=== PATIENT | female | born 1995 | race Two or more races ===

== ENCOUNTER 2021-04-01 10:15 | Outpatient (REF) | payer OTHER, SELFPAY ==
[2021-04-01 15:15] LABS: CT PCR NOT DETECTED (Not Detect.); NG PCR NOT DETECTED (Not Detect.)
== END 2021-04-01 10:16 | disposition home or self-care (01) ==
LOC: HO.LAB 10:15
PROVIDERS: Visit Provider Advanced Practice Midwife
DX: Z01.419 Encounter for gynecological examination (general) (routine) without abnormal findings (principal); Z20.2 Contact with and (suspected) exposure to infections with a predominantly sexual mode of transmission; Z97.5 Presence of (intrauterine) contraceptive device
CPT/HCPCS: 87491; 87591; 88142

== ENCOUNTER 2021-11-08 09:16 | Outpatient (REF) | payer OTHER, SELFPAY | END 2021-11-08 09:17 | disposition home or self-care (01) | LOC: HO.LAB 09:16 | PROVIDERS: Visit Provider Internal Medicine | DX: Z13.89 Encounter for screening for other disorder (principal) ==

== ENCOUNTER 2022-07-06 09:16 | Outpatient (REF) | payer OTHER, SELFPAY ==
[2022-07-06 18:49] LABS: CT PCR NOT DETECTED (Not Detect.); NG PCR NOT DETECTED (Not Detect.)
== END 2022-07-06 09:17 | disposition home or self-care (01) ==
LOC: HO.LAB 09:16
PROVIDERS: Visit Provider Advanced Practice Midwife
DX: Z11.3 Encounter for screening for infections with a predominantly sexual mode of transmission (principal); Z20.2 Contact with and (suspected) exposure to infections with a predominantly sexual mode of transmission
CPT/HCPCS: 87491; 87591

== ENCOUNTER → 2022-08-10 13:13 | Outpatient (BNVA) | payer OTHER, SELFPAY | PROVIDERS: Visit Provider Advanced Practice Midwife | DX: Z30.433 Encounter for removal and reinsertion of intrauterine contraceptive device (principal); Z32.02 Encounter for pregnancy test, result negative | CPT/HCPCS: 58300; 58301; 81025; J7298 ==

== ENCOUNTER 2025-07-22 15:28 | Outpatient (REF) | payer OTHER, SELFPAY ==
[2025-07-23 03:55] LABS: CT PCR NOT DETECTED (Not Detect.); NG PCR NOT DETECTED (Not Detect.)
== END 2025-07-22 15:29 | disposition home or self-care (01) ==
LOC: HO.LNP 15:28
PROVIDERS: Visit Provider Advanced Practice Midwife
DX: Z01.419 Encounter for gynecological examination (general) (routine) without abnormal findings (principal); Z11.3 Encounter for screening for infections with a predominantly sexual mode of transmission; Z11.8 Encounter for screening for other infectious and parasitic diseases
CPT/HCPCS: 58301; 87491; 87591; 88175

== ENCOUNTER 2025-07-22 15:28 | Outpatient (AMB) | payer OTHER, SELFPAY ==
--- OUTSIDE RECORDS SUMMARY | 2025-06-05 09:15 | XMS_ITS ---
Author Organization [facility] [address] Address [address] [place] [address] Care Team Providers Care Hammer Fitter Name Role Phone JAXON IRWIN Unavailable [phone] Medications Medication SIG (Take, Route, Fr equency, Duration) Notes Start Date End Date Status Wegovy 1.7 MG/0.75ML Inject 1.7mg Subcut aneous once weekly; Duration: 30 days Active Encounters Encounter Location Date Provider Diagnosis [facility] [address] [place] [id number] 06/05/2025 JAXON IRWIN BMI 27.0-27.9,adult Z68.27 ; Overweight (BMI 25.0-29.9) E66.3 ; Dietary counseling and surveillance Z71.3 and Encounter for examination of blood pressure without abnormal findings Z01.30 Assessments Encounter Date Diagnosis (ICD Code) Assessment Notes Treatment Notes Treatment Clinical Notes Section Notes 06/05/2025 BMI 27.0-27.9,adult (ICD-10 - Z68.27) Carolyn is a 29-year-old female with a PMH of May-Thurner syndrome that presents for weight management follow-up. Reviewed [facility] holistic and medical approach to weight loss with emphasis on lifestyle modification. 05/08/2025: Weight: 139.2, BMI: 27.2. (-9lbs). 04/10/2025: Weight: 47.3, BMI: 28.7. (-2lbs) 03/06/2025: Weight: 149, BMI: 29. (-7lbs) 01/30/2025: Weight: 156, BMI: 30.5. 01/01/2025: Weight: 156, BMI: 30.5. 12/02/2024: Weight: 160, BMI: 31. (-6lbs) 10/31/2024: Weight: 169, BMI: 33. (-7lbs) 10/02/2024: Weight: 176, BMI: 34.3. All questions answered to the patient's satisfaction. Patient demonstrates understanding of diagnosis and treatments discussed. Follow-up in 4 weeks, sooner should any questions/concerns arise. Case discussed with collaborating physician Daiana Wall who has reviewed the assessment/plan. Chart, medications, labs, and vital signs reviewed. Dictation completed with the use of Stylesight voice recognition software, prone to medical misidentifications and grammatical errors. All errors are unintentional. Although the practitioner does try to identify and correct errors, some may be present. Please do not hesitate to contact the practitioner for clarification. Total time was 30 minutes spent with >50% on coordination of care and patient education. 06/05/2025 Overweight (BMI 25.0-29.9) (ICD-10 - E66.3) Carolyn is a 29-year-old female with a PMH of May-Thurner syndrome that presents for weight management follow-up. Reviewed [facility] holistic and medical approach to weight loss with emphasis on lifestyle modification. 05/08/2025: Weight: 139.2, BMI: 27.2. (-9lbs). 04/10/2025: Weight: 47.3, BMI: 28.7. (-2lbs) 03/06/2025: Weight: 149, BMI: 29. (-7lbs) 01/30/2025: Weight: 156, BMI: 30.5. 01/01/2025: Weight: 156, BMI: 30.5. 12/02/2024: Weight: 160, BMI: 31. (-6lbs) 10/31/2024: Weight: 169, BMI: 33. (-7lbs) 10/02/2024: Weight: 176, BMI: 34.3. All questions answered to the patient's satisfaction. Patient demonstrates understanding of diagnosis and treatments discussed. Follow-up in 4 weeks, sooner should any questions/concerns arise. Case discussed with collaborating physician Daiana Wall who has reviewed the assessment/plan. Chart, medications, labs, and vital signs reviewed. Dictation completed with the use of Stylesight voice recognition software, prone to medical misidentifications and grammatical errors. All errors are unintentional. Although the practitioner does try to identify and correct errors, some may be present. Please do not hesitate to contact the practitioner for clarification. Total time was 30 minutes spent with >50% on coordination of care and patient education. 06/05/2025 Dietary counseling and surveillance (ICD-10 - Z71.3) Carolyn is a 29-year-old female with a PMH of May-Thurner syndrome that presents for weight management follow-up. Reviewed [facility] holistic and medical approach to weight loss with emphasis on lifestyle modification. 05/08/2025: Weight: 139.2, BMI: 27.2. (-9lbs). 04/10/2025: Weight: 47.3, BMI: 28.7. (-2lbs) 03/06/2025: Weight: 149, BMI: 29. (-7lbs) 01/30/2025: Weight: 156, BMI: 30.5. 01/01/2025: Weight: 156, BMI: 30.5. 12/02/2024: Weight: 160, BMI: 31. (-6lbs) 10/31/2024: Weight: 169, BMI: 33. (-7lbs) 10/02/2024: Weight: 176, BMI: 34.3. All questions answered to the patient's satisfaction. Patient demonstrates understanding of diagnosis and treatments discussed. Follow-up in 4 weeks, sooner should any questions/concerns arise. Case discussed with collaborating physician Daiana Wall who has reviewed the assessment/plan. Chart, medications, labs, and vital signs reviewed. Dictation completed with the use of Stylesight voice recognition software, prone to medical misidentifications and grammatical errors. All errors are unintentional. Although the practitioner does try to identify and correct errors, some may be present. Please do not hesitate to contact the practitioner for clarification. Total time was 30 minutes spent with >50% on coordination of care and patient education. 06/05/2025 Encounter for examination of blood pressure without abnormal findings (ICD-10 - Z01.30) Carolyn is a 29-year-old female with a PMH of May-Thurner syndrome that presents for weight management follow-up. Reviewed [facility] holistic and medical approach to weight loss with emphasis on lifestyle modification. 05/08/2025: Weight: 139.2, BMI: 27.2. (-9lbs). 04/10/2025: Weight: 47.3, BMI: 28.7. (-2lbs) 03/06/2025: Weight: 149, BMI: 29. (-7lbs) 01/30/2025: Weight: 156, BMI: 30.5. 01/01/2025: Weight: 156, BMI: 30.5. 12/02/2024: Weight: 160, BMI: 31. (-6lbs) 10/31/2024: Weight: 169, BMI: 33. (-7lbs) 10/02/2024: Weight: 176, BMI: 34.3. All questions answered to the patient's satisfaction. Patient demonstrates understanding of diagnosis and treatments discussed. Follow-up in 4 weeks, sooner should any questions/concerns arise. Case discussed with collaborating physician Daiana Wall who has reviewed the assessment/plan. Chart, medications, labs, and vital signs reviewed. Dictation completed with the use of Stylesight voice recognition software, prone to medical misidentifications and grammatical errors. All errors are unintentional. Although the practitioner does try to identify and correct errors, some may be present. Please do not hesitate to contact the practitioner for clarification. Total time was 30 minutes spent with >50% on coordination of care and patient education. Plan Of Treatment Medication Medication Name Sig Start Date Stop Date Notes Wegovy 1.7 MG/0.75ML Inject 1.7mg Subcut aneous once weekly; Duration: 30 days Progress Notes * Emi POSADASOB:1994 (29 yo F)Acc No.[id number]:06/05/2025 Patient: Milton EMIR Carolyn Provider: Jordon IRWIN PA-C :1995 A ge:29 Y S ex:Female Date:06/05/2025 Address: [address], [place], [id number] Subjective: * Chief Complaints: * * HPI: C onstitutional: Carolyn is a 29-year-old female with a PMH of May-Thurner syndrome that presents for weight management follow-up. Taking Wegovy 1.7 mg SC weekly with compliance. Reports moderate appetite suppression. Denies nausea, vomiting, or abdominal pain. Having regular bowel movements. Feels energy is good this month. Averaging 2 meals/day. Not consistently eating breakfast. Lunch is a protein with veggie (meal prepped). D inner consists of a protein, veggie, and rice/beans. Averages 1 plain bottles of water/day, then does 1 with electrolytes instead of crystal light. Also walking 20 minutes/day. Adding 15-20 minutes of strength training every other day. * ROS: A ll Other Systems: Review of Systems (ROS) A ll others negative except those mentioned in HPI. * Medical History: * Medications: T aking Wegovy 1.7 MG/0.75ML Solution Auto-injector 0.75 mL Subcutaneous once weekly Objective: * Vitals: * Physical Examination: G eneral: Age appropriate, well-appearing 29-year-old female in no acute distress, speaking in full sentences without respiratory compromise. Well groomed, well developed. Alert, interactive. Skin: Warm, dry and intact. No lesions/rashes/erythema. HEENT: Normocephalic/atraumatic. CV: RRR. Lungs: Clear to auscultation bilaterally. Neuro: CN II-XII grossly intact. Steady gait with non-assisted ambulation observed. Psych: Stable mood and affect. Assessment: * Assessment: 1. O verweight (BMI 25.0-29.9) - E66.3 (Primary) 2 . B MD 27.0-27.9,adult - Z68.27 3 . D ietary counseling and surveillance - Z71.3 4 .?Encounter for examination of blood pressure without abnormal findings - Z01.30 Carolyn is a 29-year-old f emale with a PMH of May-Thurner syndrome that presents for weight management follow-up. Reviewed [facility] holistic and medical approach to weight loss with emphasis on lifestyle modification. 05/08/2025: Weight: 139.2, BMI: 27.2. (-9lbs). 04/10/2025: Weight: 47.3, BMI: 28.7. (-2lbs) 03/06/2025: Weight: 149, BMI: 29. (-7lbs) 01/30/2025: Weight: 156, BMI: 30.5. 01/01/2025: Weight: 156, BMI: 30.5. 12/02/2024: Weight: 160, BMI: 31. (-6lbs) 10/31/2024: Weight: 169, BMI: 33. (-7lbs) 10/02/2024: Weight: 176, BMI: 34.3. All questions answered to the patient's satisfaction. Patient demonstrates understanding of diagnosis and treatments discussed. Follow-up in 4 weeks, sooner should any questions/concerns arise. Case discussed with collaborating physician Daiana Wall who has reviewed the assessment/plan. Chart, medications, labs, and vital signs reviewed. Dictation completed with the use of Stylesight voice recognition software, prone to medical misidentifications and grammatical errors. All errors are unintentional. Although the practitioner does try to identify and correct errors, some may be present. Please do not hesitate to contact the practitioner for clarification. Total time was 30 minutes spent with >50% on coordination of care and patient education. Plan: * Treatment: * Images: Billing Information: * Visit Code: * Procedure Codes: * Electronic signature of SHERON IRWIN PA-C on 07/22/2025 at 05:40 PM EDT Sign off status: Pending * Provider: Jordon IRWIN PA-C Date: 06/05/2025 Generated for Luther roberts/Fallon/Karinaitting on: 0 07/22/2025 05:40 PM EDT History and Physical Notes * HPI (History of Present Illness) Category Sub-Category Detail Notes Category Not es Constitutional Carolyn is a 29-year-old female with a PMH of May-Thurner syndrome that presents for weight management follow-up. Taking Wegovy 1.7 mg SC weekly with compliance. Reports moderate appetite suppression. Denies nausea, vomiting, or abdominal pain. Having regular bowel movements. Feels energy is good this month. Averaging 2 meals/day. Not consistently eating breakfast. Lunch is a protein with veggie (meal prepped). Dinner consists of a protein, veggie, and rice/beans. Averages 1 plain bottles of water/day, then does 1 with electrolytes instead of crystal light. Also walking 20 minutes/day. Adding 15-20 minutes of strength training every other day. Physical Examination Category Sub-Category Detail Notes Section Note s General: Age appropriate, well-appearing 29-year-old female in no acute distress, speaking in full sentences without respiratory compromise. Well groomed, well developed. Alert, interactive. Skin: Warm, dry and intact. No lesions/rashes/erythema. HEENT: Normocephalic/atraumatic. CV: RRR. Lungs: Clear to auscultation bilaterally. Neuro: CN II-XII grossly intact. Steady gait with non-assisted ambulation observed. Psych: Stable mood and affect.
--- NOTE | 2025-07-22 15:52 | MHC.OFFVIS ---
Vital Signs 07/22/25 15:56 Height 5 ft Weight 144 lb BMI 28.1 BP 116/72 Blood Pressure Location Lt brachial Position Sitting Intake Visit Reasons: annual/ ? IUD removal Intake Note: Pt here for press brake operator annual and to remove mirena. Patient is wanting to have a baby Athletic Team Physician Required: No Information Interpreted: non-clinical & clinical Tile Finisher: Tile Finisher Present (mckenzie) Accompanied by: Self / Same As Patient Allergies No Known Allergies Allergy (Verified 07/22/25 15:53) Medication List - Last Reconciled 07/22/25 by Rabia Thakur LPN levonorgestrel (Mirena) intrauterine Is last menstrual period known: Yes (no period with mirena) Post menopausal: No Patient : No Do you need a note to return to daycare/school/sports/work: No HPI Comments Details: Patient is a premenopausal woman presenting for annual examination. Vessel Ordinary Seaman concerns: She wants her IUD removed today due to planning a future . Currently is sexually active. She denies vaginal itching or irritation. STI screening offered; she accepts. She tries to eat healthy and stays active with exercise. Denies family history of breast, ovarian or colon cancer. Last pap smear 2020, negative. PFSH Medical History Hx of migraine headaches History of DVT of lower extremity History of irregular menstrual cycles May-Thurner syndrome Family History Mother Diabetes Social History Alcohol intake: current Alcohol intake frequency: a few times a month Patient Tobacco Use Status: Never used Tobacco Patient : No Current occupational status: employed Current occupation: director of social media marketing Sexual orientation: Straight/Heterosexual Gender identity: Female Female Reproductive History Menstrual Age of Menarche: 9 control method: progestin IUCD Total pregnancies: 2 Full term: 2 Number of Living Children: 2 Date of last pap smear: 04/01/21 (neg) Review of Systems Const All systems reviewed & are unremarkable except as noted in HPI and below Reports as per HPI Eyes Reports no additional complaints ENT Reports no additional complaints Card Reports no additional complaints Resp Reports no additional complaints GI Reports as per HPI and Reports no additional complaints Reports as per HPI Musc Reports no additional complaints Skin/Breast Reports as per HPI Neuro Reports no additional complaints Psych Reports no additional complaints Endo Reports no additional complaints Tonny/Lymph Reports no additional complaints Aller/Immun Reports no additional complaints Physical Exam Vital Signs: Last Vital Signs BP 116/72 07/22/25 15:56 BMI result Body Mass Index 28.1 Const General: cooperative, healthy appearing, no acute distress, well developed and alert Orientation/consciousness: patient oriented x3 HEENT Head: Yes normal to inspection Eyes General: appearance normal, both eyes and all related structures Neck Neck: Yes normal visual inspection Thyroid: Thyroid normal Chest Chest palpation & inspection: normal inspection of the chest and other (no puckering, dimpling, peau de orange, retraction, discharge, masses) Breast/axilla inspection: normal inspection of the breasts Breast/axilla palpation: normal palpation of the breasts Resp Effort & Inspection: normal respiratory effort GI Inspection: Yes normal to inspection Palpation (GI): Soft to palpation Rectal Exam - Female: deferred General: Yes bladder normal to palpation External Female Exam: normal external appearance and normal appearance of the urethra Speculum Exam - Vagina: normal appearance of the vagina, normal palpation and normal vaginal discharge Speculum Exam - Cervix: normal appearance of the cervix, normal palpation and Other cervical findings present (IUD strings noted at the os) Bimanual exam- vagina & uterus: normal bimanual exam, normal palpation, uterine size normal, bladder normal to palpation, normal palpation and non-tender Bimanual Exam- Adnexa, other: no masses Skin General skin exam: no rashes or lesions noted Rashes: no rashes Neuro General: patient oriented x3 Cognition (Neuro): normal cognition Extrem General: Yes normal to inspection Psych Attitude: cooperative Thought process: Normal thought process present Office Procedures IUD Insert/Removal Details Details: The patient presents today for a IUD removal. ?She is planning a future . She was counseled regarding the removal of her IUD. She was consented for the procedure along with anticipatory guidance for the removal and the consents form was signed. She desires to proceed with the IUD removal. IUD Removal Procedure: The patient was placed in the dorsal lithotomy position. A speculum was inserted vaginally and the cervix and strings were visualized at the os. A Ripley forcep was utilized, and the patient was asked to give a deep cough while the strings were grasped and gently tugged at the same time, removing the IUD device intact. Minimal bleeding was observed. All of the equipment was removed. The patient tolerated the procedure well and left the office in good condition. IUD Removal Information: You may have light bleeding for several days, tapering off to a brown or pink color. Mild cramping after removal is common. If not allergic, you may take an over the counter mild analgesic for the discomfort, such as Tylenol or Advil (use dosing and frequency per the manufacturers recommendations). Call the office if you experience: fever (over 100.4), flu like symptoms, abdominal or pelvic pain, foul smelling discharge or heavy bleeding. If not planning for a future , another form of control is recommended. Use of condoms for prevention of STI's is also recommended, if indicated. This note is constructed using voice recognition software. ?While every effort has been made to ensure accuracy, molecular biology director errors may have been included. ? 67872-XIC Removal Procedure code (CPT) selection complete Assessment & Plan Assessment & Plan (1) Encounter for annual routine gynecological examination: Code(s): Z01.419 - Encounter for gynecological examination (general) (routine) without abnormal findings Category: Medical Plan: Discussed: Current recommendations for pap smears per ASCCP guidelines. Breast awareness and periodic breast exams. Maintain a healthy lifestyle including a well balanced diet and routine exercise. Use condoms for monitoring menses for a few months using an suly or calendar method. Initiate vitamins for the benefit of folic acid for prevention of neural tube defects. If positive to report to the office for evaluation in care to be [facility] to [facility]. Patient verbalizes understanding and agrees to the plan of care. She was given opportunity to ask questions and all questions were answered to the best of my ability. RTO in one year for annual press brake operator examination. This note is constructed using voice recognition software. While every effort has been made to ensure accuracy, molecular biology director errors may have been included. (2) Encounter for IUD removal: Code(s): Z30.432 - Encounter for removal of intrauterine contraceptive device Plan IUD removed, see procedure notes. This note is constructed using voice recognition software. While every effort has been made to ensure accuracy, molecular biology director errors may have been included. Orders: Orders CT NG by PCR Vag/Cerv Today Z11.3 - Encounter for screening for infections with a predominantly sexual mode of transmission Pap Smear Today Z01.419 - Encounter for gynecological examination (general) (routine) without abnormal findings Medications: New PNV no.[id number] 400 mcg-35 mg- 25 mg-5 mg ( Gummies) 1 tab PO DAILY 90 tabs 4RF Coding Level of Care Code Procedure Only Diagnoses Encounter for annual routine gynecological examination Z01.419 Encounter for IUD removal Z30.432 CPT Codes Details - CPT: 80682-RKA Removal ([id number]) Comment Add modifier
[2025-07-22 15:56] VITALS: BP 116/72; BMI 28.1
--- OUTSIDE RECORDS SUMMARY | 2025-07-22 17:40 | XMS_ITS | Clinical Summary ---
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 Medical History Medical History Date Comments History of DVT (deep vein thrombosis) DX:History of DVT (deep vein thrombosis) May-Thurner syndrome DX:May-Thur ner syndrome Family History Medical History Relation Name Comments Hypertension Father Other: type 1 diab Father Hypertension Mother Other: type 1 diab Mother Breast cancer Neg Hx Colon cancer Neg Hx Relation Name Status Comments Father Alive Mother Alive Social History Tobacco Use Types Packs/Day Years Used Date Smoking Tobacco: Never Smokeless Tobacco: Never Alcohol Use Standard Drinks/Week Comments Not Currently 0 (1 standard drink = 0.6 oz pur e alcohol) Comments Unknown Sex and Gender Information Value Date Recorded Sex Assigned at Not on file Legal Sex Female 2:24 AM EST Gender Identity Not on file Sexual Orientation Not on file Obstetrics History Last Filed Vital Signs Vital Sign Reading Time Taken Comments Blood Pressure 104/72 01/05/2024 8:57 AM EST Pulse 70 01/05/2024 8:57 AM EST Temperature - - Respiratory Rate - - Oxygen Saturation - - Inhaled Oxygen Concentration - - Weight 78.7 kg (173 lb 6.4 oz) 01/05/2024 8:57 A M EST Height 152.4 cm (5') 03/02/2022 9:03 AM EDT Body Mass Index 33.86 03/02/2022 9:03 AM EDT Plan of Treatment Health Maintenance Due Date Last Done Comments Hepatitis B Vaccines (1 of 3 - 19+ 3-dose series) 2014 Cervical Cancer Screening: P ap Smear 2016 HIV Screening 10/22/2022 Hepatitis C Screening 10/22/2022 Social Influencers of Health Screening 10/22/2022 Depression Screening 11/13/2024 COVID-19 Vaccine (4 - 2024-2 6 season) 2025 12/31/2021, 02/24/2021, 01/27/2021 Influenza Vaccine (#1) 2025 09/29/2021 DTaP,Tdap,and Td Vaccines (2 - Td or Tdap) 04/30/2028 04/30/2018 Cholesterol Screening (Lipid Panel) 01/05/2029 01/05/2024 HIB Vaccines Aged Out No longer eligi ble based on patient's age to complete this topic HPV Vaccines Aged Out No longer eligi ble based on patient's age to complete this topic Hepatitis A Vaccines Aged Out No long er eligible based on patient's age to complete this topic IPV Vaccines Aged Out No longer eligi ble based on patient's age to complete this topic MMR Vaccines Aged Out No longer eligi ble based on patient's age to complete this topic Meningococcal ACWY Vaccine Aged Out N o longer eligible based on patient's age to complete this topic Meningococcal B Vaccine Aged Out No l onger eligible based on patient's age to complete this topic Pneumococcal Vaccine: Pediatrics (0 to 5 Years) and At-Risk Patients (6 to 49 Years) Aged Out No longer eligible b ased on patient's age to complete this topic RSV Immunization Patients Under 20 months Aged Out No longer eligible b ased on patient's age to complete this topic Varicella Vaccines Aged Out No longer eligible based on patient's age to complete this topic Care Teams Hooker On Relationship Specialty Start Date End Date Chance Bauer MD [address] [place] [address] PCP - General Family Medicine 05/05/22
--- OUTSIDE RECORDS SUMMARY | 2025-07-22 17:40 | XMS_ITS ---
Author Name [facility] Organization Unknown Care Team Organization Name Specialty Phone Email Start Date End Da irish [facility] Chance Bauer Primary Care 09/20/20222023
--- OUTSIDE RECORDS SUMMARY | 2025-07-22 17:41 | XMS_ITS | Clinical Summary ---
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 Gargle and spit out 100 mL 5 Active Encounters Date Type Department Care Team Description 05/03/2025 4:45 PM EDT Office Visit [facility] [address] [place] [address] Vikas Ortiz MD Kocot, Meredith, PA-C Dental infection (Primary Dx); Pain, dental 05/03/2025 Travel from Last 3 Months Social History Tobacco Use Types Packs/Day Years Used Date Smoking Tobacco: Never Smokeless Tobacco: Never Tobacco Cessation:Counseling Given: Not Answered Comments Unknown Sex and Gender Information Value Date Recorded Sex Assigned at Not on file Legal Sex Female 11:49 AM EDT Gender Identity Not on file Sexual Orientation Not on file Last Filed Vital Signs Vital Sign Reading Time Taken Comments Blood Pressure 101/71 05/03/2025 4:28 PM EDT Pulse 78 05/03/2025 4:28 PM EDT Temperature 36.8 C (98.2 F) 05/03/2025 4:28 PM EDT Respiratory Rate 18 05/03/2025 4:28 PM EDT Oxygen Saturation 96% 05/03/2025 4:28 PM EDT Inhaled Oxygen Concentration - - Weight 65.3 kg (144 lb) 05/03/2025 4:28 PM EDT Height 152.4 cm (5') 05/03/2025 4:28 PM EDT Body Mass Index 28.12 05/03/2025 4:28 PM EDT Plan of Treatment Health Maintenance Due Date Last Done Comments Hepatitis C Virus Screening 1995 HIV Screening 2008 DTaP/Tdap/Td Vaccines (1 - Tdap) 2014 Hepatitis B Vaccines (1 of 3 - 19+ 3-dose series) 2014 Pap Smear (Ages 21-65) 2016 HPV Vaccines (1 - 3-dose SCD M series) 2022 COVID-19 Vaccine (3 - 2023-2 5 season) 2024 02/24/2021, 01/27/2021 Influenza Vaccine 06/13/2025 Pneumococcal Vaccine: Pediatric (0-5 Years) and At-Risk Patients (6 to 49 Years) Aged Out No longer eligible b ased on patient's age to complete this topic Insurance [facility] Care Teams Deputy [employer] [place] Marshal Relationship Specialty Start Date End Date Pcp, No PCP - General General Medicine 06/01/24
--- OUTSIDE RECORDS SUMMARY | 2025-07-22 17:41 | XMS_ITS | Patient Health Record ---
Author Organization [facility] [address] Address [address] [place] [address] Care Team Providers Care Hand Chain Maker Name Role Phone [email or web address] Unavailable [phone] Allergies No Known Allergies Reason For Referral No Information Medications Medication SIG (Take, Route, Fr equency, Duration) Notes Start Date End Date Status Wegovy 1.7 MG/0.75ML Inject 1.7mg Subcut aneous once weekly; Duration: 30 days Active Problems Problem Type SNOMED Code ICD Code Onset Dates Problem Status W/U Status Risk Notes Problem Overweight (912768017) Overweight (BMI 25.0-29.9) (E66.3) Active confirmed Problem History of obesity (722671199) History of obesity (Z86.39) Active confirmed Problem May-Thurner syndrome (142061509) May-Thurner syndrome (I87.1) Active confirmed Vital Signs Heart Rate 82 /min 05/08/2025 Oximetry 99 % 05/08/2025 Blood pressure diastolic 82 mm Hg 05/08/2025 Height 60 in 05/08/2025 Blood pressure systolic 120 mm Hg 05/08/2025 Weight 139.2 lbs 05/08/2025 BMI 27.18 kg/m2 05/08/2025 Encounters Encounter Location Date Provider Diagnosis [facility] [address] [facility] [address] [place] [address] 10/02/2024 JAXON IRWIN Obesity (BMI 30-39.9 ) E66.9 ; BMI 34.0-34.9,adult Z68.34 and May-Thurner syndrome I87.1 [facility] [address] [facility] [address] [place] [address] 10/31/2024 JAXON DC Obesity (BMI 30-39.9 ) E66.9 ; BMI 33.0-33.9,adult Z68.33 and May-Thurner syndrome I87.1 [facility] [address] 12/02/2024 JAXON DC Obesity (BMI 30-39.9 ) E66.9 and BMI 31.0-31.9,adult Z68.31 [facility] [address] 01/01/2025 JAXON DC Obesity (BMI 30-39.9 ) E66.9 ; BMI 30.0-30.9,adult Z68.30 and Dietary counseling and surveillance Z71.3 [facility] [address] 01/30/2025 JAXON DC Obesity (BMI 30-39.9 ) E66.9 ; BMI 30.0-30.9,adult Z68.30 and Dietary counseling and surveillance Z71.3 [facility] [address] 03/06/2025 JAXON DC Overweight (BMI 25.0-29.9) E66.3 ; BMI 29.0-29.9,adult Z68.29 and Dietary counseling and surveillance Z71.3 [facility] [address] 04/10/2025 JAXON DC Overweight (BMI 25.0-29.9) E66.3 ; BMI 28.0-28.9,adult Z68.28 ; Dietary counseling and surveillance Z71.3 and Encounter for examination of blood pressure without abnormal findings Z01.30 [facility] [address] [id number] 05/08/2025 JAXON DC BMI 27.0-27.9,adult Z68.27 ; Overweight (BMI 25.0-29.9) E66.3 ; Dietary counseling and surveillance Z71.3 and Encounter for examination of blood pressure without abnormal findings Z01.30 [facility] [address] [facility] [address] [place] [address] 10/02/2024 JAXON DC [facility] [address] [place] [id number] 05/19/2025 JAXON IRWIN Overweight (BMI 25.0-29.9) E66.3 Assessments Encounter Date Diagnosis (ICD Code) Assessment Notes Treatment Notes Treatment Clinical Notes Section Notes 10/02/2024 Obesity (BMI 30-39.9) (ICD-10 - E66.9) Carolyn is a 28-year-old female with a PMH of May-Thurner syndrome that presents for weight management consult. Patient was reassured and welcomed to the practice. Discussed [facility] holistic and medical approach to weight loss with emphasis on lifestyle modification. Patient is educated that a healthy lifestyle aids in combating obesity as well as reducing the risk of developing obesity-related medical complications including but not limited to diabetes and cardiovascular disease. Detailed education provided about taking steps to initiate sustainable lifestyle changes including incorporating regular physical activity, making healthy diet choices, and prioritizing mental health. Information provided about literature including The Food Rules by Sedrick Grey and Eat Fat Get Lean by Dr Kavin Ellis. Handouts including lifestyle checklist, protein content of food, low calorie snacks, and cholesterol information sheet provided. Diagnostic testing/ SECA scale offered. Discussed the importance of regular SECA scale measurements to ensure healthy weight loss. 10/02/2024: Weight: 176, BMI: 34.3. Reviewed SECA/goals for implementing sustainable lifestyle changes. Patient is encouraged to increase physical activity, goal 8-10k steps/day. Also discussed the importance of strength training with proper safety/body mechanics for maintenance of muscle mass/bone health. Patient encouraged to drink 60-80oz water/day. Reviewed nutrition, recommending food diary x 1 week to ensure adequate caloric/protein intake. Goal of 80-100g protein/day. Reviewed risks, benefits, and side effects of weight management medications including phentermine, Topamax, Contrave, metformin, and GLP-1 agonist.Patient interested in GLP-1 agonist Wegovy. Denies personal/family history of medullary thyroid cancer/M EN syndrome. Rx for Wegovy 0.25 mg SC weekly sent to pharmacy. Reviewed expectations for PA process/insurance coverage. Patient would like to initiate therapy with compounded semaglutide injections in the meantime. 0.25 mg of compounded semaglutide administered in office today. After consultation and careful review of medical history, this patient would benefit from Wegovy based off of the following criteria met: Patient is over the age of 18 with a BMI of 34.. Patient has trialed other methods of weight loss including improving diet and exercise without success.This medication is prescribed by or in consultation with a board-certified obesity and weight management physician (Dr. Jenny Wall or Dr. Yesy Wall). All questions answered to the patient's satisfaction. Patient demonstrates understanding of diagnosis and treatments discussed. Follow-up in 4 weeks, sooner should any questions/concerns arise. Case discussed with collaborating physician Daiana Wall who has reviewed the assessment/plan. Chart, medications, labs, and vital signs reviewed. Dictation completed with the use of [employer] voice recognition software, prone to medical misidentifications and grammatical errors. All errors are unintentional. Although the practitioner does try to identify and correct errors, some may be present. Please do not hesitate to contact the practitioner for clarification. Total time was 60 minutes spent with >50% on coordination of care and patient education. 10/02/2024 BMI 34.0-34.9,adult (ICD-10 - Z68.34) Carolyn is a 28-year-old female with a PMH of May-Thurner syndrome that presents for weight management consult. Patient was reassured and welcomed to the practice. Discussed [facility] holistic and medical approach to weight loss with emphasis on lifestyle modification. Patient is educated that a healthy lifestyle aids in combating obesity as well as reducing the risk of developing obesity-related medical complications including but not limited to diabetes and cardiovascular disease. Detailed education provided about taking steps to initiate sustainable lifestyle changes including incorporating regular physical activity, making healthy diet choices, and prioritizing mental health. Information provided about literature including The Food Rules by Sedrick Grey and Eat Fat Get Lean by Dr Kavin Ellis. Handouts including lifestyle checklist, protein content of food, low calorie snacks, and cholesterol information sheet provided. Diagnostic testing/ SECA scale offered. Discussed the importance of regular SECA scale measurements to ensure healthy weight loss. 10/02/2024: Weight: 176, BMI: 34.3. Reviewed SECA/goals for implementing sustainable lifestyle changes. Patient is encouraged to increase physical activity, goal 8-10k steps/day. Also discussed the importance of strength training with proper safety/body mechanics for maintenance of muscle mass/bone health. Patient encouraged to drink 60-80oz water/day. Reviewed nutrition, recommending food diary x 1 week to ensure adequate caloric/protein intake. Goal of 80-100g protein/day. Reviewed risks, benefits, and side effects of weight management medications including phentermine, Topamax, Contrave, metformin, and GLP-1 agonist.Patient interested in GLP-1 agonist Wegovy. Denies personal/family history of medullary thyroid cancer/M EN syndrome. Rx for Wegovy 0.25 mg SC weekly sent to pharmacy. Reviewed expectations for PA process/insurance coverage. Patient would like to initiate therapy with compounded semaglutide injections in the meantime. 0.25 mg of compounded semaglutide administered in office today. After consultation and careful review of medical history, this patient would benefit from Wegovy based off of the following criteria met: Patient is over the age of 18 with a BMI of 34.. Patient has trialed other methods of weight loss including improving diet and exercise without success.This medication is prescribed by or in consultation with a board-certified obesity and weight management physician (Dr. Jenny Wall or Dr. Yesy Wall). All questions answered to the patient's satisfaction. Patient demonstrates understanding of diagnosis and treatments discussed. Follow-up in 4 weeks, sooner should any questions/concerns arise. Case discussed with collaborating physician Daiana Wall who has reviewed the assessment/plan. Chart, medications, labs, and vital signs reviewed. Dictation completed with the use of [employer] voice recognition software, prone to medical misidentifications and grammatical errors. All errors are unintentional. Although the practitioner does try to identify and correct errors, some may be present. Please do not hesitate to contact the practitioner for clarification. Total time was 60 minutes spent with >50% on coordination of care and patient education. 10/31/2024 Obesity (BMI 30-39.9) (ICD-10 - E66.9) Carolyn is a 28-year-old female with a PMH of May-Thurner syndrome that presents for weight management follow-up. Reviewed [facility] holistic and medical approach to weight loss with emphasis on lifestyle modification. 10/31/2024: Weight: 169, BMI: 33.SECA reviewed, reveals over 5 pounds of fat loss with maintenance of muscle mass. Patient is encouraged to continue practicing portion control and prioritizing intake of protein, fruits, vegetables, whole grains, etc. Continue to limit excess fatty foods, carbs, starches, and sugary beverages. The patient is encouraged to continue prioritizing water intake. Recommending continued regular walking, patient is encouraged to add strength training 2-3 times weekly. Given 7 pound weight loss, plan to continue Wegovy 0.25 mg SC weekly and follow-up in 1 month. 10/02/2024: Weight: 176, BMI: 34.3. Reviewed SECA/goals for implementing sustainable lifestyle changes. Patient is encouraged to increase physical activity, goal 8-10k steps/day. Also discussed the importance of strength training with proper safety/body mechanics for maintenance of muscle mass/bone health. Patient encouraged to drink 60-80oz water/day. Reviewed nutrition, recommending food diary x 1 week to ensure adequate caloric/protein intake. Goal of 80-100g protein/day. Reviewed risks, benefits, and side effects of weight management medications including phentermine, Topamax, Contrave, metformin, and GLP-1 agonist.Patient interested in GLP-1 agonist Wegovy. Denies personal/family history of medullary thyroid cancer/M EN syndrome. Rx for Wegovy 0.25 mg SC weekly sent to pharmacy. Reviewed expectations for PA process/insurance coverage. Patient would like to initiate therapy with compounded semaglutide injections in the meantime. 0.25 mg of compounded semaglutide administered in office today. All questions answered to the patient's satisfaction. Patient demonstrates understanding of diagnosis and treatments discussed. Follow-up in 4 weeks, sooner should any questions/concerns arise. Case discussed with collaborating physician Daiana Wall who has reviewed the assessment/plan. Chart, medications, labs, and vital signs reviewed. Dictation completed with the use of [employer] voice recognition software, prone to medical misidentifications and grammatical errors. All errors are unintentional. Although the practitioner does try to identify and correct errors, some may be present. Please do not hesitate to contact the practitioner for clarification. Total time was 30 minutes spent with >50% on coordination of care and patient education. 10/31/2024 BMI 33.0-33.9,adult (ICD-10 - Z68.33) Carolyn is a 28-year-old female with a PMH of May-Thurner syndrome that presents for weight management follow-up. Reviewed [facility] holistic and medical approach to weight loss with emphasis on lifestyle modification. 10/31/2024: Weight: 169, BMI: 33.SECA reviewed, reveals over 5 pounds of fat loss with maintenance of muscle mass. Patient is encouraged to continue practicing portion control and prioritizing intake of protein, fruits, vegetables, whole grains, etc. Continue to limit excess fatty foods, carbs, starches, and sugary beverages. The patient is encouraged to continue prioritizing water intake. Recommending continued regular walking, patient is encouraged to add strength training 2-3 times weekly. Given 7 pound weight loss, plan to continue Wegovy 0.25 mg SC weekly and follow-up in 1 month. 10/02/2024: Weight: 176, BMI: 34.3. Reviewed SECA/goals for implementing sustainable lifestyle changes. Patient is encouraged to increase physical activity, goal 8-10k steps/day. Also discussed the importance of strength training with proper safety/body mechanics for maintenance of muscle mass/bone health. Patient encouraged to drink 60-80oz water/day. Reviewed nutrition, recommending food diary x 1 week to ensure adequate caloric/protein intake. Goal of 80-100g protein/day. Reviewed risks, benefits, and side effects of weight management medications including phentermine, Topamax, Contrave, metformin, and GLP-1 agonist.Patient interested in GLP-1 agonist Wegovy. Denies personal/family history of medullary thyroid cancer/M EN syndrome. Rx for Wegovy 0.25 mg SC weekly sent to pharmacy. Reviewed expectations for PA process/insurance coverage. Patient would like to initiate therapy with compounded semaglutide injections in the meantime. 0.25 mg of compounded semaglutide administered in office today. All questions answered to the patient's satisfaction. Patient demonstrates understanding of diagnosis and treatments discussed. Follow-up in 4 weeks, sooner should any questions/concerns arise. Case discussed with collaborating physician Daiana Wall who has reviewed the assessment/plan. Chart, medications, labs, and vital signs reviewed. Dictation completed with the use of [employer] voice recognition software, prone to medical misidentifications and grammatical errors. All errors are unintentional. Although the practitioner does try to identify and correct errors, some may be present. Please do not hesitate to contact the practitioner for clarification. Total time was 30 minutes spent with >50% on coordination of care and patient education. 12/02/2024 Obesity (BMI 30-39.9) (ICD-10 - E66.9) Carolyn is a 28-year-old female with a PMH of May-Thurner syndrome that presents for weight management follow-up. Reviewed [facility] holistic and medical approach to weight loss with emphasis on lifestyle modification. 12/02/2024: Weight: 160, BMI: 31. Patient down 6 pounds. SECA reviewed, reveals fat loss with maintenance of muscle mass. Patient encouraged to continue making health-conscious diet choices, prioritizing protein intake, practicing portion control, and hydrating adequately. Discussed the importance of added strength training for continued maintenance of muscle mass. Plan to continue Wegovy 0.25 mg SC weekly and follow-up in 1 month. 10/31/2024: Weight: 169, BMI: 33.SECA reviewed, reveals over 5 pounds of fat loss with maintenance of muscle mass. Patient is encouraged to continue practicing portion control and prioritizing intake of protein, fruits, vegetables, whole grains, etc. Continue to limit excess fatty foods, carbs, starches, and sugary beverages. The patient is encouraged to continue prioritizing water intake. Recommending continued regular walking, patient is encouraged to add strength training 2-3 times weekly. Given 7 pound weight loss, plan to continue Wegovy 0.25 mg SC weekly and follow-up in 1 month. 10/02/2024: Weight: 176, BMI: 34.3. Reviewed SECA/goals for implementing sustainable lifestyle changes. Patient is encouraged to increase physical activity, goal 8-10k steps/day. Also discussed the importance of strength training with proper safety/body mechanics for maintenance of muscle mass/bone health. Patient encouraged to drink 60-80oz water/day. Reviewed nutrition, recommending food diary x 1 week to ensure adequate caloric/protein intake. Goal of 80-100g protein/day. Reviewed risks, benefits, and side effects of weight management medications including phentermine, Topamax, Contrave, metformin, and GLP-1 agonist.Patient interested in GLP-1 agonist Wegovy. Denies personal/family history of medullary thyroid cancer/M EN syndrome. Rx for Wegovy 0.25 mg SC weekly sent to pharmacy. Reviewed expectations for PA process/insurance coverage. Patient would like to initiate therapy with compounded semaglutide injections in the meantime. 0.25 mg of compounded semaglutide administered in office today. All questions answered to the patient's satisfaction. Patient demonstrates understanding of diagnosis and treatments discussed. Follow-up in 4 weeks, sooner should any questions/concerns arise. Case discussed with collaborating physician Daiana Wall who has reviewed the assessment/plan. Chart, medications, labs, and vital signs reviewed. Dictation completed with the use of [employer] voice recognition software, prone to medical misidentifications and grammatical errors. All errors are unintentional. Although the practitioner does try to identify and correct errors, some may be present. Please do not hesitate to contact the practitioner for clarification. Total time was 30 minutes spent with >50% on coordination of care and patient education. 12/02/2024 BMI 31.0-31.9,adult (ICD-10 - Z68.31) Carolyn is a 28-year-old female with a PMH of May-Thurner syndrome that presents for weight management follow-up. Reviewed [facility] holistic and medical approach to weight loss with emphasis on lifestyle modification. 12/02/2024: Weight: 160, BMI: 31. Patient down 6 pounds. SECA reviewed, reveals fat loss with maintenance of muscle mass. Patient encouraged to continue making health-conscious diet choices, prioritizing protein intake, practicing portion control, and hydrating adequately. Discussed the importance of added strength training for continued maintenance of muscle mass. Plan to continue Wegovy 0.25 mg SC weekly and follow-up in 1 month. 10/31/2024: Weight: 169, BMI: 33.SECA reviewed, reveals over 5 pounds of fat loss with maintenance of muscle mass. Patient is encouraged to continue practicing portion control and prioritizing intake of protein, fruits, vegetables, whole grains, etc. Continue to limit excess fatty foods, carbs, starches, and sugary beverages. The patient is encouraged to continue prioritizing water intake. Recommending continued regular walking, patient is encouraged to add strength training 2-3 times weekly. Given 7 pound weight loss, plan to continue Wegovy 0.25 mg SC weekly and follow-up in 1 month. 10/02/2024: Weight: 176, BMI: 34.3. Reviewed SECA/goals for implementing sustainable lifestyle changes. Patient is encouraged to increase physical activity, goal 8-10k steps/day. Also discussed the importance of strength training with proper safety/body mechanics for maintenance of muscle mass/bone health. Patient encouraged to drink 60-80oz water/day. Reviewed nutrition, recommending food diary x 1 week to ensure adequate caloric/protein intake. Goal of 80-100g protein/day. Reviewed risks, benefits, and side effects of weight management medications including phentermine, Topamax, Contrave, metformin, and GLP-1 agonist.Patient interested in GLP-1 agonist Wegovy. Denies personal/family history of medullary thyroid cancer/M EN syndrome. Rx for Wegovy 0.25 mg SC weekly sent to pharmacy. Reviewed expectations for PA process/insurance coverage. Patient would like to initiate therapy with compounded semaglutide injections in the meantime. 0.25 mg of compounded semaglutide administered in office today. All questions answered to the patient's satisfaction. Patient demonstrates understanding of diagnosis and treatments discussed. Follow-up in 4 weeks, sooner should any questions/concerns arise. Case discussed with collaborating physician Daiana Wall who has reviewed the assessment/plan. Chart, medications, labs, and vital signs reviewed. Dictation completed with the use of [employer] voice recognition software, prone to medical misidentifications and grammatical errors. All errors are unintentional. Although the practitioner does try to identify and correct errors, some may be present. Please do not hesitate to contact the practitioner for clarification. Total time was 30 minutes spent with >50% on coordination of care and patient education. 01/01/2025 Obesity (BMI 30-39.9) (ICD-10 - E66.9) Carolyn is a 29-year-old female with a PMH of May-Thurner syndrome that presents for weight management follow-up. Reviewed [facility] holistic and medical approach to weight loss with emphasis on lifestyle modification. 01/01/2025: Weight: 156, BMI: 30.5. SECA reviewed, reveals unchanged fat mass and loss of muscle mass. Patient is encouraged to reestablish exercise routine now that she is feeling better. She is additionally encouraged to continue prioritizing protein intake, goal 80 g/day. Plan to increase dose of Wegovy to 0.5 mg SC weekly and follow-up in 1 month. 12/02/2024: Weight: 160, BMI: 31. Patient down 6 pounds. SECA reviewed, reveals fat loss with maintenance of muscle mass. Patient encouraged to continue making health-conscious diet choices, prioritizing protein intake, practicing portion control, and hydrating adequately. Discussed the importance of added strength training for continued maintenance of muscle mass. Plan to continue Wegovy 0.25 mg SC weekly and follow-up in 1 month. 10/31/2024: Weight: 169, BMI: 33.SECA reviewed, reveals over 5 pounds of fat loss with maintenance of muscle mass. Patient is encouraged to continue practicing portion control and prioritizing intake of protein, fruits, vegetables, whole grains, etc. Continue to limit excess fatty foods, carbs, starches, and sugary beverages. The patient is encouraged to continue prioritizing water intake. Recommending continued regular walking, patient is encouraged to add strength training 2-3 times weekly. Given 7 pound weight loss, plan to continue Wegovy 0.25 mg SC weekly and follow-up in 1 month. 10/02/2024: Weight: 176, BMI: 34.3. Reviewed SECA/goals for implementing sustainable lifestyle changes. Patient is encouraged to increase physical activity, goal 8-10k steps/day. Also discussed the importance of strength training with proper safety/body mechanics for maintenance of muscle mass/bone health. Patient encouraged to drink 60-80oz water/day. Reviewed nutrition, recommending food diary x 1 week to ensure adequate caloric/protein intake. Goal of 80-100g protein/day. Reviewed risks, benefits, and side effects of weight management medications including phentermine, Topamax, Contrave, metformin, and GLP-1 agonist.Patient interested in GLP-1 agonist Wegovy. Denies personal/family history of medullary thyroid cancer/M EN syndrome. Rx for Wegovy 0.25 mg SC weekly sent to pharmacy. Reviewed expectations for PA process/insurance coverage. Patient would like to initiate therapy with compounded semaglutide injections in the meantime. 0.25 mg of compounded semaglutide administered in office today. All questions answered to the patient's satisfaction. Patient demonstrates understanding of diagnosis and treatments discussed. Follow-up in 4 weeks, sooner should any questions/concerns arise. Case discussed with collaborating physician Daiana Wall who has reviewed the assessment/plan. Chart, medications, labs, and vital signs reviewed. Dictation completed with the use of [employer] voice recognition software, prone to medical misidentifications and grammatical errors. All errors are unintentional. Although the practitioner does try to identify and correct errors, some may be present. Please do not hesitate to contact the practitioner for clarification. Total time was 30 minutes spent with >50% on coordination of care and patient education. 01/01/2025 BMI 30.0-30.9,adult (ICD-10 - Z68.30) Carolyn is a 29-year-old female with a PMH of May-Thurner syndrome that presents for weight management follow-up. Reviewed [facility] holistic and medical approach to weight loss with emphasis on lifestyle modification. 01/01/2025: Weight: 156, BMI: 30.5. SECA reviewed, reveals unchanged fat mass and loss of muscle mass. Patient is encouraged to reestablish exercise routine now that she is feeling better. She is additionally encouraged to continue prioritizing protein intake, goal 80 g/day. Plan to increase dose of Wegovy to 0.5 mg SC weekly and follow-up in 1 month. 12/02/2024: Weight: 160, BMI: 31. Patient down 6 pounds. SECA reviewed, reveals fat loss with maintenance of muscle mass. Patient encouraged to continue making health-conscious diet choices, prioritizing protein intake, practicing portion control, and hydrating adequately. Discussed the importance of added strength training for continued maintenance of muscle mass. Plan to continue Wegovy 0.25 mg SC weekly and follow-up in 1 month. 10/31/2024: Weight: 169, BMI: 33.SECA reviewed, reveals over 5 pounds of fat loss with maintenance of muscle mass. Patient is encouraged to continue practicing portion control and prioritizing intake of protein, fruits, vegetables, whole grains, etc. Continue to limit excess fatty foods, carbs, starches, and sugary beverages. The patient is encouraged to continue prioritizing water intake. Recommending continued regular walking, patient is encouraged to add strength training 2-3 times weekly. Given 7 pound weight loss, plan to continue Wegovy 0.25 mg SC weekly and follow-up in 1 month. 10/02/2024: Weight: 176, BMI: 34.3. Reviewed SECA/goals for implementing sustainable lifestyle changes. Patient is encouraged to increase physical activity, goal 8-10k steps/day. Also discussed the importance of strength training with proper safety/body mechanics for maintenance of muscle mass/bone health. Patient encouraged to drink 60-80oz water/day. Reviewed nutrition, recommending food diary x 1 week to ensure adequate caloric/protein intake. Goal of 80-100g protein/day. Reviewed risks, benefits, and side effects of weight management medications including phentermine, Topamax, Contrave, metformin, and GLP-1 agonist.Patient interested in GLP-1 agonist Wegovy. Denies personal/family history of medullary thyroid cancer/M EN syndrome. Rx for Wegovy 0.25 mg SC weekly sent to pharmacy. Reviewed expectations for PA process/insurance coverage. Patient would like to initiate therapy with compounded semaglutide injections in the meantime. 0.25 mg of compounded semaglutide administered in office today. All questions answered to the patient's satisfaction. Patient demonstrates understanding of diagnosis and treatments discussed. Follow-up in 4 weeks, sooner should any questions/concerns arise. Case discussed with collaborating physician Daiana Wall who has reviewed the assessment/plan. Chart, medications, labs, and vital signs reviewed. Dictation completed with the use of [employer] voice recognition software, prone to medical misidentifications and grammatical errors. All errors are unintentional. Although the practitioner does try to identify and correct errors, some may be present. Please do not hesitate to contact the practitioner for clarification. Total time was 30 minutes spent with >50% on coordination of care and patient education. 01/30/2025 Obesity (BMI 30-39.9) (ICD-10 - E66.9) Carolyn is a 29-year-old female with a PMH of May-Thurner syndrome that presents for weight management follow-up. Reviewed [facility] holistic and medical approach to weight loss with emphasis on lifestyle modification. 01/30/2025: Weight: 156, BMI: 30.5. Although weight is stable, CT reveals improved composition -there is loss of fat mass and improvement of muscle mass. Patient is encouraged to continue making health-conscious diet choices and prioritizing protein intake. Discussed the importance of creasing water intake goal 60 to 80 ounces/day. She is encouraged to continue walking regularly discussed adding brisk walking/cardio and strength training for continued maintenance. Plan to increase dose of Wegovy to 1 mg SC weekly and follow-up in 1 month. 01/01/2025: Weight: 156, BMI: 30.5. SECA reviewed, reveals unchanged fat mass and loss of muscle mass. Patient is encouraged to reestablish exercise routine now that she is feeling better. She is additionally encouraged to continue prioritizing protein intake, goal 80 g/day. Plan to increase dose of Wegovy to 0.5 mg SC weekly and follow-up in 1 month. 12/02/2024: Weight: 160, BMI: 31. Patient down 6 pounds. SECA reviewed, reveals fat loss with maintenance of muscle mass. Patient encouraged to continue making health-conscious diet choices, prioritizing protein intake, practicing portion control, and hydrating adequately. Discussed the importance of added strength training for continued maintenance of muscle mass. Plan to continue Wegovy 0.25 mg SC weekly and follow-up in 1 month. 10/31/2024: Weight: 169, BMI: 33.SECA reviewed, reveals over 5 pounds of fat loss with maintenance of muscle mass. Patient is encouraged to continue practicing portion control and prioritizing intake of protein, fruits, vegetables, whole grains, etc. Continue to limit excess fatty foods, carbs, starches, and sugary beverages. The patient is encouraged to continue prioritizing water intake. Recommending continued regular walking, patient is encouraged to add strength training 2-3 times weekly. Given 7 pound weight loss, plan to continue Wegovy 0.25 mg SC weekly and follow-up in 1 month. 10/02/2024: Weight: 176, BMI: 34.3. Reviewed SECA/goals for implementing sustainable lifestyle changes. Patient is encouraged to increase physical activity, goal 8-10k steps/day. Also discussed the importance of strength training with proper safety/body mechanics for maintenance of muscle mass/bone health. Patient encouraged to drink 60-80oz water/day. Reviewed nutrition, recommending food diary x 1 week to ensure adequate caloric/protein intake. Goal of 80-100g protein/day. Reviewed risks, benefits, and side effects of weight management medications including phentermine, Topamax, Contrave, metformin, and GLP-1 agonist.Patient interested in GLP-1 agonist Wegovy. Denies personal/family history of medullary thyroid cancer/M EN syndrome. Rx for Wegovy 0.25 mg SC weekly sent to pharmacy. Reviewed expectations for [place] process/insurance coverage. Patient would like to initiate therapy with compounded semaglutide injections in the meantime. 0.25 mg of compounded semaglutide administered in office today. All questions answered to the patient's satisfaction. Patient demonstrates understanding of diagnosis and treatments discussed. Follow-up in 4 weeks, sooner should any questions/concerns arise. Case discussed with collaborating physician Daiana Wall who has reviewed the assessment/plan. Chart, medications, labs, and vital signs reviewed. Dictation completed with the use of [employer] voice recognition software, prone to medical misidentifications and grammatical errors. All errors are unintentional. Although the practitioner does try to identify and correct errors, some may be present. Please do not hesitate to contact the practitioner for clarification. Total time was 30 minutes spent with >50% on coordination of care and patient education. 03/06/2025 BMI 29.0-29.9,adult (ICD-10 - Z68.29) Carolyn is a 29-year-old female with a PMH of May-Thurner syndrome that presents for weight management follow-up. Reviewed [facility] holistic and medical approach to weight loss with emphasis on lifestyle modification. 03/06/2025: Weight: 149, BMI: 29. Patient down 7 pounds. SECA reviewed, reveals 8 pounds of fat loss and 1 pound of muscle mass gain. Patient congratulated on progress. She is encouraged to reestablish routine out that she has returned home from vacation. Discussed the importance of continued intake of nutrient rich/protein dense foods. She is also encouraged to continue with her current hydration/electrolyte as well as exercise regimen. Plan to continue Wegovy 1 mg SC weekly and follow-up in 1 month. 01/30/2025: Weight: 156, BMI: 30.5. Although weight is stable, CT reveals improved composition -there is loss of fat mass and improvement of muscle mass. Patient is encouraged to continue making health-conscious diet choices and prioritizing protein intake. Discussed the importance of creasing water intake goal 60 to 80 ounces/day. She is encouraged to continue walking regularly discussed adding brisk walking/cardio and strength training for continued maintenance. Plan to increase dose of Wegovy to 1 mg SC weekly and follow-up in 1 month. 01/01/2025: Weight: 156, BMI: 30.5. SECA reviewed, reveals unchanged fat mass and loss of muscle mass. Patient is encouraged to reestablish exercise routine now that she is feeling better. She is additionally encouraged to continue prioritizing protein intake, goal 80 g/day. Plan to increase dose of Wegovy to 0.5 mg SC weekly and follow-up in 1 month. 12/02/2024: Weight: 160, BMI: 31. Patient down 6 pounds. SECA reviewed, reveals fat loss with maintenance of muscle mass. Patient encouraged to continue making health-conscious diet choices, prioritizing protein intake, practicing portion control, and hydrating adequately. Discussed the importance of added strength training for continued maintenance of muscle mass. Plan to continue Wegovy 0.25 mg SC weekly and follow-up in 1 month. 10/31/2024: Weight: 169, BMI: 33.SECA reviewed, reveals over 5 pounds of fat loss with maintenance of muscle mass. Patient is encouraged to continue practicing portion control and prioritizing intake of protein, fruits, vegetables, whole grains, etc. Continue to limit excess fatty foods, carbs, starches, and sugary beverages. The patient is encouraged to continue prioritizing water intake. Recommending continued regular walking, patient is encouraged to add strength training 2-3 times weekly. Given 7 pound weight loss, plan to continue Wegovy 0.25 mg SC weekly and follow-up in 1 month. 10/02/2024: Weight: 176, BMI: 34.3. Reviewed SECA/goals for implementing sustainable lifestyle changes. Patient is encouraged to increase physical activity, goal 8-10k steps/day. Also discussed the importance of strength training with proper safety/body mechanics for maintenance of muscle mass/bone health. Patient encouraged to drink 60-80oz water/day. Reviewed nutrition, recommending food diary x 1 week to ensure adequate caloric/protein intake. Goal of 80-100g protein/day. Reviewed risks, benefits, and side effects of weight management medications including phentermine, Topamax, Contrave, metformin, and GLP-1 agonist.Patient interested in GLP-1 agonist Wegovy. Denies personal/family history of medullary thyroid cancer/M EN syndrome. Rx for Wegovy 0.25 mg SC weekly sent to pharmacy. Reviewed expectations for [place] process/insurance coverage. Patient would like to initiate therapy with compounded semaglutide injections in the meantime. 0.25 mg of compounded semaglutide administered in office today. All questions answered to the patient's satisfaction. Patient demonstrates understanding of diagnosis and treatments discussed. Follow-up in 4 weeks, sooner should any questions/concerns arise. Case discussed with collaborating physician Daiana Wall who has reviewed the assessment/plan. Chart, medications, labs, and vital signs reviewed. Dictation completed with the use of [employer] voice recognition software, prone to medical misidentifications and grammatical errors. All errors are unintentional. Although the practitioner does try to identify and correct errors, some may be present. Please do not hesitate to contact the practitioner for clarification. Total time was 30 minutes spent with >50% on coordination of care and patient education. 03/06/2025 Overweight (BMI 25.0-29.9) (ICD-10 - E66.3) Carolyn is a 29-year-old female with a PMH of May-Thurner syndrome that presents for weight management follow-up. Reviewed [facility] holistic and medical approach to weight loss with emphasis on lifestyle modification. 03/06/2025: Weight: 149, BMI: 29. Patient down 7 pounds. SECA reviewed, reveals 8 pounds of fat loss and 1 pound of muscle mass gain. Patient congratulated on progress. She is encouraged to reestablish routine out that she has returned home from vacation. Discussed the importance of continued intake of nutrient rich/protein dense foods. She is also encouraged to continue with her current hydration/electrolyte as well as exercise regimen. Plan to continue Wegovy 1 mg SC weekly and follow-up in 1 month. 01/30/2025: Weight: 156, BMI: 30.5. Although weight is stable, CT reveals improved composition -there is loss of fat mass and improvement of muscle mass. Patient is encouraged to continue making health-conscious diet choices and prioritizing protein intake. Discussed the importance of creasing water intake goal 60 to 80 ounces/day. She is encouraged to continue walking regularly discussed adding brisk walking/cardio and strength training for continued maintenance. Plan to increase dose of Wegovy to 1 mg SC weekly and follow-up in 1 month. 01/01/2025: Weight: 156, BMI: 30.5. SECA reviewed, reveals unchanged fat mass and loss of muscle mass. Patient is encouraged to reestablish exercise routine now that she is feeling better. She is additionally encouraged to continue prioritizing protein intake, goal 80 g/day. Plan to increase dose of Wegovy to 0.5 mg SC weekly and follow-up in 1 month. 12/02/2024: Weight: 160, BMI: 31. Patient down 6 pounds. SECA reviewed, reveals fat loss with maintenance of muscle mass. Patient encouraged to continue making health-conscious diet choices, prioritizing protein intake, practicing portion control, and hydrating adequately. Discussed the importance of added strength training for continued maintenance of muscle mass. Plan to continue Wegovy 0.25 mg SC weekly and follow-up in 1 month. 10/31/2024: Weight: 169, BMI: 33.SECA reviewed, reveals over 5 pounds of fat loss with maintenance of muscle mass. Patient is encouraged to continue practicing portion control and prioritizing intake of protein, fruits, vegetables, whole grains, etc. Continue to limit excess fatty foods, carbs, starches, and sugary beverages. The patient is encouraged to continue prioritizing water intake. Recommending continued regular walking, patient is encouraged to add strength training 2-3 times weekly. Given 7 pound weight loss, plan to continue Wegovy 0.25 mg SC weekly and follow-up in 1 month. 10/02/2024: Weight: 176, BMI: 34.3. Reviewed SECA/goals for implementing sustainable lifestyle changes. Patient is encouraged to increase physical activity, goal 8-10k steps/day. Also discussed the importance of strength training with proper safety/body mechanics for maintenance of muscle mass/bone health. Patient encouraged to drink 60-80oz water/day. Reviewed nutrition, recommending food diary x 1 week to ensure adequate caloric/protein intake. Goal of 80-100g protein/day. Reviewed risks, benefits, and side effects of weight management medications including phentermine, Topamax, Contrave, metformin, and GLP-1 agonist.Patient interested in GLP-1 agonist Wegovy. Denies personal/family history of medullary thyroid cancer/M EN syndrome. Rx for Wegovy 0.25 mg SC weekly sent to pharmacy. Reviewed expectations for [place] process/insurance coverage. Patient would like to initiate therapy with compounded semaglutide injections in the meantime. 0.25 mg of compounded semaglutide administered in office today. All questions answered to the patient's satisfaction. Patient demonstrates understanding of diagnosis and treatments discussed. Follow-up in 4 weeks, sooner should any questions/concerns arise. Case discussed with collaborating physician Daiana Wall who has reviewed the assessment/plan. Chart, medications, labs, and vital signs reviewed. Dictation completed with the use of [employer] voice recognition software, prone to medical misidentifications and grammatical errors. All errors are unintentional. Although the practitioner does try to identify and correct errors, some may be present. Please do not hesitate to contact the practitioner for clarification. Total time was 30 minutes spent with >50% on coordination of care and patient education. 04/10/2025 BMI 28.0-28.9,adult (ICD-10 - Z68.28) Carolyn is a 29-year-old female with a PMH of May-Thurner syndrome that presents for weight management follow-up. Reviewed [facility] holistic and medical approach to weight loss with emphasis on lifestyle modification. 04/10/2025: Weight: 47.3, BMI: 28.7. Patient down 2 pounds. SECA reviewed, reveals 1 pound of fat loss and 4 pounds of muscle mass loss. Reviewed importance of increasing protein intake. Patient encouraged to eat protein dense foods 2-3 times daily i.e. meat, fish, nuts, yogurt, cottage cheese, etc. She is encouraged to also increase water intake, goal 40 to 60 ounces/day. Recommending continued walking with added strength training 3 times weekly. Will increase dose of Wegovy 1.7 mg SC weekly and follow-up in 1 month. 03/06/2025: Weight: 149, BMI: 29. (-7lbs) 01/30/2025: [...] reviewed. Dictation completed with the use of [employer] voice recognition software, prone to medical misidentifications and grammatical errors. All errors are unintentional. Although the practitioner does try to identify and correct errors, some may be present. Please do not hesitate to contact the practitioner for clarification. Total time was 30 minutes spent with >50% on coordination of care and patient education. 04/10/2025 Overweight (BMI 25.0-29.9) (ICD-10 - E66.3) Carolyn is a 29-year-old female with a PMH of May-Thurner syndrome that presents for weight management follow-up. Reviewed [facility] holistic and medical approach to weight loss with emphasis on lifestyle modification. 04/10/2025: Weight: 47.3, BMI: 28.7. Patient down 2 pounds. SECA reviewed, reveals 1 pound of fat loss and 4 pounds of muscle mass loss. Reviewed importance of increasing protein intake. Patient encouraged to eat protein dense foods 2-3 times daily i.e. meat, fish, nuts, yogurt, cottage cheese, etc. She is encouraged to also increase water intake, goal 40 to 60 ounces/day. Recommending continued walking with added strength training 3 times weekly. Will increase dose of Wegovy 1.7 mg SC weekly and follow-up in 1 month. 03/06/2025: Weight: 149, BMI: 29. (-7lbs) 01/30/2025: [...] reviewed. Dictation completed with the use of [employer] voice recognition software, prone to medical misidentifications and grammatical errors. All errors are unintentional. Although the practitioner does try to identify and correct errors, some may be present. Please do not hesitate to contact the practitioner for clarification. Total time was 30 minutes spent with >50% on coordination of care and patient education. 05/08/2025 BMI 27.0-27.9,adult (ICD-10 - Z68.27) Carolyn is a 29-year-old female with a PMH of May-Thurner syndrome that presents for weight management follow-up. Reviewed [facility] holistic and medical approach to weight loss with emphasis on lifestyle modification. 05/08/2025: Weight: 139.2, BMI: 27.2. (-9lbs). SECA reviewed, reveals equal fat and muscle mass loss. Patient encouraged to continue with health-conscious diet choices and prioritizing protein intake. Discussed importance of combination of cardio and strength training. She is encouraged to increase water intake, goal 60 ounces/day. Current goal is to optimize body composition with normalization of fat mass and maintenance of average muscle mass. Will continue Wegovy 1.7 mg SC weekly and follow-up in 1 month. 04/10/2025: Weight: 47.3, BMI: 28.7. (-2lbs) 03/06/2025: [...] reviewed. Dictation completed with the use of [employer] voice recognition software, prone to medical misidentifications and grammatical errors. All errors are unintentional. Although the practitioner does try to identify and correct errors, some may be present. Please do not hesitate to contact the practitioner for clarification. Total time was 30 minutes spent with >50% on coordination of care and patient education. 05/19/2025 Overweight (BMI 25.0-29.9) (ICD-10 - E66.3) 05/08/2025 Overweight (BMI 25.0-29.9) (ICD-10 - E66.3) Carolyn is a 29-year-old female with a PMH of May-Thurner syndrome that presents for weight management follow-up. Reviewed [facility] holistic and medical approach to weight loss with emphasis on lifestyle modification. 05/08/2025: Weight: 139.2, BMI: 27.2. (-9lbs). SECA reviewed, reveals equal fat and muscle mass loss. Patient encouraged to continue with health-conscious diet choices and prioritizing protein intake. Discussed importance of combination of cardio and strength training. She is encouraged to increase water intake, goal 60 ounces/day. Current goal is to optimize body composition with normalization of fat mass and maintenance of average muscle mass. Will continue Wegovy 1.7 mg SC weekly and follow-up in 1 month. 04/10/2025: Weight: 47.3, BMI: 28.7. (-2lbs) 03/06/2025: [...] reviewed. Dictation completed with the use of [employer] voice recognition software, prone to medical misidentifications and grammatical errors. All errors are unintentional. Although the practitioner does try to identify and correct errors, some may be present. Please do not hesitate to contact the practitioner for clarification. Total time was 30 minutes spent with >50% on coordination of care and patient education. 04/10/2025 Dietary counseling and surveillance (ICD-10 - Z71.3) Carolyn is a 29-year-old female with a PMH of May-Thurner syndrome that presents for weight management follow-up. Reviewed [facility] holistic and medical approach to weight loss with emphasis on lifestyle modification. 04/10/2025: Weight: 47.3, BMI: 28.7. Patient down 2 pounds. SECA reviewed, reveals 1 pound of fat loss and 4 pounds of muscle mass loss. Reviewed importance of increasing protein intake. Patient encouraged to eat protein dense foods 2-3 times daily i.e. meat, fish, nuts, yogurt, cottage cheese, etc. She is encouraged to also increase water intake, goal 40 to 60 ounces/day. Recommending continued walking with added strength training 3 times weekly. Will increase dose of Wegovy 1.7 mg SC weekly and follow-up in 1 month. 03/06/2025: Weight: 149, BMI: 29. (-7lbs) 01/30/2025: [...] reviewed. Dictation completed with the use of [employer] voice recognition software, prone to medical misidentifications and grammatical errors. All errors are unintentional. Although the practitioner does try to identify and correct errors, some may be present. Please do not hesitate to contact the practitioner for clarification. Total time was 30 minutes spent with >50% on coordination of care and patient education. 05/08/2025 Dietary counseling and surveillance (ICD-10 - Z71.3) Carolyn is a 29-year-old female with a PMH of May-Thurner syndrome that presents for weight management follow-up. Reviewed [facility] holistic and medical approach to weight loss with emphasis on lifestyle modification. 05/08/2025: Weight: 139.2, BMI: 27.2. (-9lbs). SECA reviewed, reveals equal fat and muscle mass loss. Patient encouraged to continue with health-conscious diet choices and prioritizing protein intake. Discussed importance of combination of cardio and strength training. She is encouraged to increase water intake, goal 60 ounces/day. Current goal is to optimize body composition with normalization of fat mass and maintenance of average muscle mass. Will continue Wegovy 1.7 mg SC weekly and follow-up in 1 month. 04/10/2025: Weight: 47.3, BMI: 28.7. (-2lbs) 03/06/2025: [...] reviewed. Dictation completed with the use of [employer] voice recognition software, prone to medical misidentifications and grammatical errors. All errors are unintentional. Although the practitioner does try to identify and correct errors, some may be present. Please do not hesitate to contact the practitioner for clarification. Total time was 30 minutes spent with >50% on coordination of care and patient education. 01/30/2025 BMI 30.0-30.9,adult (ICD-10 - Z68.30) Carolyn is a 29-year-old female with a PMH of May-Thurner syndrome that presents for weight management follow-up. Reviewed [facility] holistic and medical approach to weight loss with emphasis on lifestyle modification. 01/30/2025: Weight: 156, BMI: 30.5. Although weight is stable, CT reveals improved composition -there is loss of fat mass and improvement of muscle mass. Patient is encouraged to continue making health-conscious diet choices and prioritizing protein intake. Discussed the importance of creasing water intake goal 60 to 80 ounces/day. She is encouraged to continue walking regularly discussed adding brisk walking/cardio and strength training for continued maintenance. Plan to increase dose of Wegovy to 1 mg SC weekly and follow-up in 1 month. 01/01/2025: Weight: 156, BMI: 30.5. SECA reviewed, reveals unchanged fat mass and loss of muscle mass. Patient is encouraged to reestablish exercise routine now that she is feeling better. She is additionally encouraged to continue prioritizing protein intake, goal 80 g/day. Plan to increase dose of Wegovy to 0.5 mg SC weekly and follow-up in 1 month. 12/02/2024: Weight: 160, BMI: 31. Patient down 6 pounds. SECA reviewed, reveals fat loss with maintenance of muscle mass. Patient encouraged to continue making health-conscious diet choices, prioritizing protein intake, practicing portion control, and hydrating adequately. Discussed the importance of added strength training for continued maintenance of muscle mass. Plan to continue Wegovy 0.25 mg SC weekly and follow-up in 1 month. 10/31/2024: Weight: 169, BMI: 33.SECA reviewed, reveals over 5 pounds of fat loss with maintenance of muscle mass. Patient is encouraged to continue practicing portion control and prioritizing intake of protein, fruits, vegetables, whole grains, etc. Continue to limit excess fatty foods, carbs, starches, and sugary beverages. The patient is encouraged to continue prioritizing water intake. Recommending continued regular walking, patient is encouraged to add strength training 2-3 times weekly. Given 7 pound weight loss, plan to continue Wegovy 0.25 mg SC weekly and follow-up in 1 month. 10/02/2024: Weight: 176, BMI: 34.3. Reviewed SECA/goals for implementing sustainable lifestyle changes. Patient is encouraged to increase physical activity, goal 8-10k steps/day. Also discussed the importance of strength training with proper safety/body mechanics for maintenance of muscle mass/bone health. Patient encouraged to drink 60-80oz water/day. Reviewed nutrition, recommending food diary x 1 week to ensure adequate caloric/protein intake. Goal of 80-100g protein/day. Reviewed risks, benefits, and side effects of weight management medications including phentermine, Topamax, Contrave, metformin, and GLP-1 agonist.Patient interested in GLP-1 agonist Wegovy. Denies personal/family history of medullary thyroid cancer/M EN syndrome. Rx for Wegovy 0.25 mg SC weekly sent to pharmacy. Reviewed expectations for [place] process/insurance coverage. Patient would like to initiate therapy with compounded semaglutide injections in the meantime. 0.25 mg of compounded semaglutide administered in office today. All questions answered to the patient's satisfaction. Patient demonstrates understanding of diagnosis and treatments discussed. Follow-up in 4 weeks, sooner should any questions/concerns arise. Case discussed with collaborating physician Daiana Wall who has reviewed the assessment/plan. Chart, medications, labs, and vital signs reviewed. Dictation completed with the use of [employer] voice recognition software, prone to medical misidentifications and grammatical errors. All errors are unintentional. Although the practitioner does try to identify and correct errors, some may be present. Please do not hesitate to contact the practitioner for clarification. Total time was 30 minutes spent with >50% on coordination of care and patient education. 03/06/2025 Dietary counseling and surveillance (ICD-10 - Z71.3) Carolyn is a 29-year-old female with a PMH of May-Thurner syndrome that presents for weight management follow-up. Reviewed [facility] holistic and medical approach to weight loss with emphasis on lifestyle modification. 03/06/2025: Weight: 149, BMI: 29. Patient down 7 pounds. SECA reviewed, reveals 8 pounds of fat loss and 1 pound of muscle mass gain. Patient congratulated on progress. She is encouraged to reestablish routine out that she has returned home from vacation. Discussed the importance of continued intake of nutrient rich/protein dense foods. She is also encouraged to continue with her current hydration/electrolyte as well as exercise regimen. Plan to continue Wegovy 1 mg SC weekly and follow-up in 1 month. 01/30/2025: Weight: 156, BMI: 30.5. Although weight is stable, CT reveals improved composition -there is loss of fat mass and improvement of muscle mass. Patient is encouraged to continue making health-conscious diet choices and prioritizing protein intake. Discussed the importance of creasing water intake goal 60 to 80 ounces/day. She is encouraged to continue walking regularly discussed adding brisk walking/cardio and strength training for continued maintenance. Plan to increase dose of Wegovy to 1 mg SC weekly and follow-up in 1 month. 01/01/2025: Weight: 156, BMI: 30.5. SECA reviewed, reveals unchanged fat mass and loss of muscle mass. Patient is encouraged to reestablish exercise routine now that she is feeling better. She is additionally encouraged to continue prioritizing protein intake, goal 80 g/day. Plan to increase dose of Wegovy to 0.5 mg SC weekly and follow-up in 1 month. 12/02/2024: Weight: 160, BMI: 31. Patient down 6 pounds. SECA reviewed, reveals fat loss with maintenance of muscle mass. Patient encouraged to continue making health-conscious diet choices, prioritizing protein intake, practicing portion control, and hydrating adequately. Discussed the importance of added strength training for continued maintenance of muscle mass. Plan to continue Wegovy 0.25 mg SC weekly and follow-up in 1 month. 10/31/2024: Weight: 169, BMI: 33.SECA reviewed, reveals over 5 pounds of fat loss with maintenance of muscle mass. Patient is encouraged to continue practicing portion control and prioritizing intake of protein, fruits, vegetables, whole grains, etc. Continue to limit excess fatty foods, carbs, starches, and sugary beverages. The patient is encouraged to continue prioritizing water intake. Recommending continued regular walking, patient is encouraged to add strength training 2-3 times weekly. Given 7 pound weight loss, plan to continue Wegovy 0.25 mg SC weekly and follow-up in 1 month. 10/02/2024: Weight: 176, BMI: 34.3. Reviewed SECA/goals for implementing sustainable lifestyle changes. Patient is encouraged to increase physical activity, goal 8-10k steps/day. Also discussed the importance of strength training with proper safety/body mechanics for maintenance of muscle mass/bone health. Patient encouraged to drink 60-80oz water/day. Reviewed nutrition, recommending food diary x 1 week to ensure adequate caloric/protein intake. Goal of 80-100g protein/day. Reviewed risks, benefits, and side effects of weight management medications including phentermine, Topamax, Contrave, metformin, and GLP-1 agonist.Patient interested in GLP-1 agonist Wegovy. Denies personal/family history of medullary thyroid cancer/M EN syndrome. Rx for Wegovy 0.25 mg SC weekly sent to pharmacy. Reviewed expectations for [place] process/insurance coverage. Patient would like to initiate therapy with compounded semaglutide injections in the meantime. 0.25 mg of compounded semaglutide administered in office today. All questions answered to the patient's satisfaction. Patient demonstrates understanding of diagnosis and treatments discussed. Follow-up in 4 weeks, sooner should any questions/concerns arise. Case discussed with collaborating physician Daiana Wall who has reviewed the assessment/plan. Chart, medications, labs, and vital signs reviewed. Dictation completed with the use of [employer] voice recognition software, prone to medical misidentifications and grammatical errors. All errors are unintentional. Although the practitioner does try to identify and correct errors, some may be present. Please do not hesitate to contact the practitioner for clarification. Total time was 30 minutes spent with >50% on coordination of care and patient education. 01/01/2025 Dietary counseling and surveillance (ICD-10 - Z71.3) Carolyn is a 29-year-old female with a PMH of May-Thurner syndrome that presents for weight management follow-up. Reviewed [facility] holistic and medical approach to weight loss with emphasis on lifestyle modification. 01/01/2025: Weight: 156, BMI: 30.5. SECA reviewed, reveals unchanged fat mass and loss of muscle mass. Patient is encouraged to reestablish exercise routine now that she is feeling better. She is additionally encouraged to continue prioritizing protein intake, goal 80 g/day. Plan to increase dose of Wegovy to 0.5 mg SC weekly and follow-up in 1 month. 12/02/2024: Weight: 160, BMI: 31. Patient down 6 pounds. SECA reviewed, reveals fat loss with maintenance of muscle mass. Patient encouraged to continue making health-conscious diet choices, prioritizing protein intake, practicing portion control, and hydrating adequately. Discussed the importance of added strength training for continued maintenance of muscle mass. Plan to continue Wegovy 0.25 mg SC weekly and follow-up in 1 month. 10/31/2024: Weight: 169, BMI: 33.SECA reviewed, reveals over 5 pounds of fat loss with maintenance of muscle mass. Patient is encouraged to continue practicing portion control and prioritizing intake of protein, fruits, vegetables, whole grains, etc. Continue to limit excess fatty foods, carbs, starches, and sugary beverages. The patient is encouraged to continue prioritizing water intake. Recommending continued regular walking, patient is encouraged to add strength training 2-3 times weekly. Given 7 pound weight loss, plan to continue Wegovy 0.25 mg SC weekly and follow-up in 1 month. 10/02/2024: Weight: 176, BMI: 34.3. Reviewed SECA/goals for implementing sustainable lifestyle changes. Patient is encouraged to increase physical activity, goal 8-10k steps/day. Also discussed the importance of strength training with proper safety/body mechanics for maintenance of muscle mass/bone health. Patient encouraged to drink 60-80oz water/day. Reviewed nutrition, recommending food diary x 1 week to ensure adequate caloric/protein intake. Goal of 80-100g protein/day. Reviewed risks, benefits, and side effects of weight management medications including phentermine, Topamax, Contrave, metformin, and GLP-1 agonist.Patient interested in GLP-1 agonist Wegovy. Denies personal/family history of medullary thyroid cancer/M EN syndrome. Rx for Wegovy 0.25 mg SC weekly sent to pharmacy. Reviewed expectations for PA process/insurance coverage. Patient would like to initiate therapy with compounded semaglutide injections in the meantime. 0.25 mg of compounded semaglutide administered in office today. All questions answered to the patient's satisfaction. Patient demonstrates understanding of diagnosis and treatments discussed. Follow-up in 4 weeks, sooner should any questions/concerns arise. Case discussed with collaborating physician Daiana Wall who has reviewed the assessment/plan. Chart, medications, labs, and vital signs reviewed. Dictation completed with the use of [employer] voice recognition software, prone to medical misidentifications and grammatical errors. All errors are unintentional. Although the practitioner does try to identify and correct errors, some may be present. Please do not hesitate to contact the practitioner for clarification. Total time was 30 minutes spent with >50% on coordination of care and patient education. 10/31/2024 May-Thurner syndrome (ICD-10 - I87.1) Carolyn is a 28-year-old female with a PMH of May-Thurner syndrome that presents for weight management follow-up. Reviewed [facility] holistic and medical approach to weight loss with emphasis on lifestyle modification. 10/31/2024: Weight: 169, BMI: 33.SECA reviewed, reveals over 5 pounds of fat loss with maintenance of muscle mass. Patient is encouraged to continue practicing portion control and prioritizing intake of protein, fruits, vegetables, whole grains, etc. Continue to limit excess fatty foods, carbs, starches, and sugary beverages. The patient is encouraged to continue prioritizing water intake. Recommending continued regular walking, patient is encouraged to add strength training 2-3 times weekly. Given 7 pound weight loss, plan to continue Wegovy 0.25 mg SC weekly and follow-up in 1 month. 10/02/2024: Weight: 176, BMI: 34.3. Reviewed SECA/goals for implementing sustainable lifestyle changes. Patient is encouraged to increase physical activity, goal 8-10k steps/day. Also discussed the importance of strength training with proper safety/body mechanics for maintenance of muscle mass/bone health. Patient encouraged to drink 60-80oz water/day. Reviewed nutrition, recommending food diary x 1 week to ensure adequate caloric/protein intake. Goal of 80-100g protein/day. Reviewed risks, benefits, and side effects of weight management medications including phentermine, Topamax, Contrave, metformin, and GLP-1 agonist.Patient interested in GLP-1 agonist Wegovy. Denies personal/family history of medullary thyroid cancer/M EN syndrome. Rx for Wegovy 0.25 mg SC weekly sent to pharmacy. Reviewed expectations for [place] process/insurance coverage. Patient would like to initiate therapy with compounded semaglutide injections in the meantime. 0.25 mg of compounded semaglutide administered in office today. All questions answered to the patient's satisfaction. Patient demonstrates understanding of diagnosis and treatments discussed. Follow-up in 4 weeks, sooner should any questions/concerns arise. Case discussed with collaborating physician Daiana Wall who has reviewed the assessment/plan. Chart, medications, labs, and vital signs reviewed. Dictation completed with the use of [employer] voice recognition software, prone to medical misidentifications and grammatical errors. All errors are unintentional. Although the practitioner does try to identify and correct errors, some may be present. Please do not hesitate to contact the practitioner for clarification. Total time was 30 minutes spent with >50% on coordination of care and patient education. 10/02/2024 May-Thurner syndrome (ICD-10 - I87.1) Carolyn is a 28-year-old female with a PMH of May-Thurner syndrome that presents for weight management consult. Patient was reassured and welcomed to the practice. Discussed [facility] holistic and medical approach to weight loss with emphasis on lifestyle modification. Patient is educated that a healthy lifestyle aids in combating obesity as well as reducing the risk of developing obesity-related medical complications including but not limited to diabetes and cardiovascular disease. Detailed education provided about taking steps to initiate sustainable lifestyle changes including incorporating regular physical activity, making healthy diet choices, and prioritizing mental health. Information provided about literature including The Food Rules by Sedrick Grey and Eat Fat Get Lean by Dr Kavin Ellis. Handouts including lifestyle checklist, protein content of food, low calorie snacks, and cholesterol information sheet provided. Diagnostic testing/ SECA scale offered. Discussed the importance of regular SECA scale measurements to ensure healthy weight loss. 10/02/2024: Weight: 176, BMI: 34.3. Reviewed SECA/goals for implementing sustainable lifestyle changes. Patient is encouraged to increase physical activity, goal 8-10k steps/day. Also discussed the importance of strength training with proper safety/body mechanics for maintenance of muscle mass/bone health. Patient encouraged to drink 60-80oz water/day. Reviewed nutrition, recommending food diary x 1 week to ensure adequate caloric/protein intake. Goal of 80-100g protein/day. Reviewed risks, benefits, and side effects of weight management medications including phentermine, Topamax, Contrave, metformin, and GLP-1 agonist.Patient interested in GLP-1 agonist Wegovy. Denies personal/family history of medullary thyroid cancer/M EN syndrome. Rx for Wegovy 0.25 mg SC weekly sent to pharmacy. Reviewed expectations for [place] process/insurance coverage. Patient would like to initiate therapy with compounded semaglutide injections in the meantime. 0.25 mg of compounded semaglutide administered in office today. After consultation and careful review of medical history, this patient would benefit from Wegovy based off of the following criteria met: Patient is over the age of 18 with a BMI of 34.. Patient has trialed other methods of weight loss including improving diet and exercise without success.This medication is prescribed by or in consultation with a board-certified obesity and weight management physician (Dr. Jenny Wall or Dr. Yesy Wall). All questions answered to the patient's satisfaction. Patient demonstrates understanding of diagnosis and treatments discussed. Follow-up in 4 weeks, sooner should any questions/concerns arise. Case discussed with collaborating physician Daiana Wall who has reviewed the assessment/plan. Chart, medications, labs, and vital signs reviewed. Dictation completed with the use of [employer] voice recognition software, prone to medical misidentifications and grammatical errors. All errors are unintentional. Although the practitioner does try to identify and correct errors, some may be present. Please do not hesitate to contact the practitioner for clarification. Total time was 60 minutes spent with >50% on coordination of care and patient education. 01/30/2025 Dietary counseling and surveillance (ICD-10 - Z71.3) Carolyn is a 29-year-old female with a PMH of May-Thurner syndrome that presents for weight management follow-up. Reviewed [facility] holistic and medical approach to weight loss with emphasis on lifestyle modification. 01/30/2025: Weight: 156, BMI: 30.5. Although weight is stable, CT reveals improved composition -there is loss of fat mass and improvement of muscle mass. Patient is encouraged to continue making health-conscious diet choices and prioritizing protein intake. Discussed the importance of creasing water intake goal 60 to 80 ounces/day. She is encouraged to continue walking regularly discussed adding brisk walking/cardio and strength training for continued maintenance. Plan to increase dose of Wegovy to 1 mg SC weekly and follow-up in 1 month. 01/01/2025: Weight: 156, BMI: 30.5. SECA reviewed, reveals unchanged fat mass and loss of muscle mass. Patient is encouraged to reestablish exercise routine now that she is feeling better. She is additionally encouraged to continue prioritizing protein intake, goal 80 g/day. Plan to increase dose of Wegovy to 0.5 mg SC weekly and follow-up in 1 month. 12/02/2024: Weight: 160, BMI: 31. Patient down 6 pounds. SECA reviewed, reveals fat loss with maintenance of muscle mass. Patient encouraged to continue making health-conscious diet choices, prioritizing protein intake, practicing portion control, and hydrating adequately. Discussed the importance of added strength training for continued maintenance of muscle mass. Plan to continue Wegovy 0.25 mg SC weekly and follow-up in 1 month. 10/31/2024: Weight: 169, BMI: 33.SECA reviewed, reveals over 5 pounds of fat loss with maintenance of muscle mass. Patient is encouraged to continue practicing portion control and prioritizing intake of protein, fruits, vegetables, whole grains, etc. Continue to limit excess fatty foods, carbs, starches, and sugary beverages. The patient is encouraged to continue prioritizing water intake. Recommending continued regular walking, patient is encouraged to add strength training 2-3 times weekly. Given 7 pound weight loss, plan to continue Wegovy 0.25 mg SC weekly and follow-up in 1 month. 10/02/2024: Weight: 176, BMI: 34.3. Reviewed SECA/goals for implementing sustainable lifestyle changes. Patient is encouraged to increase physical activity, goal 8-10k steps/day. Also discussed the importance of strength training with proper safety/body mechanics for maintenance of muscle mass/bone health. Patient encouraged to drink 60-80oz water/day. Reviewed nutrition, recommending food diary x 1 week to ensure adequate caloric/protein intake. Goal of 80-100g protein/day. Reviewed risks, benefits, and side effects of weight management medications including phentermine, Topamax, Contrave, metformin, and GLP-1 agonist.Patient interested in GLP-1 agonist Wegovy. Denies personal/family history of medullary thyroid cancer/M EN syndrome. Rx for Wegovy 0.25 mg SC weekly sent to pharmacy. Reviewed expectations for [place] process/insurance coverage. Patient would like to initiate therapy with compounded semaglutide injections in the meantime. 0.25 mg of compounded semaglutide administered in office today. All questions answered to the patient's satisfaction. Patient demonstrates understanding of diagnosis and treatments discussed. Follow-up in 4 weeks, sooner should any questions/concerns arise. Case discussed with collaborating physician Daiana Wall who has reviewed the assessment/plan. Chart, medications, labs, and vital signs reviewed. Dictation completed with the use of [employer] voice recognition software, prone to medical misidentifications and grammatical errors. All errors are unintentional. Although the practitioner does try to identify and correct errors, some may be present. Please do not hesitate to contact the practitioner for clarification. Total time was 30 minutes spent with >50% on coordination of care and patient education. 04/10/2025 Encounter for examination of blood pressure without abnormal findings (ICD-10 - Z01.30) Carolyn is a 29-year-old female with a PMH of May-Thurner syndrome that presents for weight management follow-up. Reviewed [facility] holistic and medical approach to weight loss with emphasis on lifestyle modification. 04/10/2025: Weight: 47.3, BMI: 28.7. Patient down 2 pounds. SECA reviewed, reveals 1 pound of fat loss and 4 pounds of muscle mass loss. Reviewed importance of increasing protein intake. Patient encouraged to eat protein dense foods 2-3 times daily i.e. meat, fish, nuts, yogurt, cottage cheese, etc. She is encouraged to also increase water intake, goal 40 to 60 ounces/day. Recommending continued walking with added strength training 3 times weekly. Will increase dose of Wegovy 1.7 mg SC weekly and follow-up in 1 month. 03/06/2025: Weight: 149, BMI: 29. (-7lbs) 01/30/2025: [...] reviewed. Dictation completed with the use of [employer] voice recognition software, prone to medical misidentifications and grammatical errors. All errors are unintentional. Although the practitioner does try to identify and correct errors, some may be present. Please do not hesitate to contact the practitioner for clarification. Total time was 30 minutes spent with >50% on coordination of care and patient education. 05/08/2025 Encounter for examination of blood pressure without abnormal findings (ICD-10 - Z01.30) Carolyn is a 29-year-old female with a PMH of May-Thurner syndrome that presents for weight management follow-up. Reviewed [facility] holistic and medical approach to weight loss with emphasis on lifestyle modification. 05/08/2025: Weight: 139.2, BMI: 27.2. (-9lbs). SECA reviewed, reveals equal fat and muscle mass loss. Patient encouraged to continue with health-conscious diet choices and prioritizing protein intake. Discussed importance of combination of cardio and strength training. She is encouraged to increase water intake, goal 60 ounces/day. Current goal is to optimize body composition with normalization of fat mass and maintenance of average muscle mass. Will continue Wegovy 1.7 mg SC weekly and follow-up in 1 month. 04/10/2025: Weight: 47.3, BMI: 28.7. (-2lbs) 03/06/2025: [...] reviewed. Dictation completed with the use of [employer] voice recognition software, prone to medical misidentifications and grammatical errors. All errors are unintentional. Although the practitioner does try to identify and correct errors, some may be present. Please do not hesitate to contact the practitioner for clarification. Total time was 30 minutes spent with >50% on coordination of care and patient education. 06/05/2025 Carolyn is a 29-year-old female with a [...] reviewed. Dictation completed with the use of [employer] voice recognition software, prone to medical misidentifications and grammatical errors. All errors are unintentional. Although the practitioner does try to identify and correct errors, some may be present. Please do not hesitate to contact the practitioner for clarification. Total time was 30 minutes spent with >50% on coordination of care and patient education. Plan Of Treatment Pending Test Test Name Order Date LIPID PANEL, STANDARD 10/02/2024 COMPREHENSIVE METABOLIC PANEL 10/02/2024 CBC (INCLUDES DIFF/PLT) 10/02/2024 HEMOGLOBIN A1c 10/02/2024 TSH W/REFLEX TO FT4 10/02/2024 VITAMIN D,25-OH,TOTAL,IA 10/02/2024 Insurance Providers Payer Name Payer Address Payer Phone Subscriber Number Group Number Insured Name Patient Relationship to Insured Coverage Start Date Coverage End Date [facility] [address] [place] [address] [id number] Carolyn Hess Self - patient is the insured 4 Medications Administered Medication Instructions Date of Administration Dosage Notes Semaglutide 10/02/2024 .25 mg Medical (General) History Medical History History ICD Code May-Thurner syndrome I87.1 Surgical History Surgery Date(Month/Year) 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
== END 2025-07-23 07:39 | disposition home or self-care (01) ==
LOC: HO.HWS 15:28
PROVIDERS: Visit Provider Advanced Practice Midwife
DX: Z01.419 Encounter for gynecological examination (general) (routine) without abnormal findings (principal); Z30.432 Encounter for removal of intrauterine contraceptive device
CPT/HCPCS: 58301; 99395; 99459